=== PATIENT | female | born 1970 | race Caucasian/White ===

== ENCOUNTER → 2017-11-20 | Day surgery (SDC) | payer BC ==
[~2017-11-20] MED LIST: ALBUTEROL0.63 MG/3 INH; ASPIRIN EC81 MG PO; CALCIUM ACETAT667 MG PO; DHEA25 M1 PO; ESTER C PO; FENTANYL CITRATE/PF 100MCG/2 ML INJ ONE; KRILL OIL 1,001 EACH PO; KRILL OIL500 MG PO; MIDAZOLAM HCL 2 MG/2 ML VIAL ONE; OR PHACO EYE KIT ONE; PRENATAL PLUS1 EAC3 PO; PREOP PHACO EYE KIT ONE; SYNTHROID125 MCG PO; VIT D PO; ZYRTEC10 MG PO
[2017-11-20 15:00] VITALS: BP 119/72
== END | disposition home or self-care (01) ==
LOC: OR 11:42
PROVIDERS: ATTEND Ophthalmology
DX: H25.11 Age-related nuclear cataract, right eye (principal); E03.9 Hypothyroidism, unspecified; Z79.82 Long term (current) use of aspirin; J45.909 Unspecified asthma, uncomplicated; T78.40XA Allergy, unspecified, initial encounter; X58.XXXA Exposure to other specified factors, initial encounter
CPT/HCPCS: 66984; 81025; J2250; V2632

== ENCOUNTER → 2018-02-12 | Day surgery (SDC) | payer BC ==
[~2018-02-12] MED LIST changes: +ALLEGRA ALLERG180 MG PO; +VITAMIN B COMP1 EAC1 PO
--- OUTSIDE RECORDS SUMMARY | 2018-02-12 13:55 | XMS REPORT | Continuity of Care Document ---
Author Author Zahida jarred [facility] Address Unknown Phone Unavailable Problems Problem Status Onset Date Classification Date Reported Comments Source Acute sinusitis 01/20/2017 Diagnosis 01/20/2017 [facility] Feeling feverish 01/20/2017 Diagnosis 01/20/2017 [facility] Pain in throat 01/20/2017 Diagnosis 01/20/2017 [facility] Aphthous ulcer of mouth 12/19/2016 Diagnosis 12/19/2016 [facility] Medications Medication Details Route Status Patient Instructions Ordering Provider Order Date Source Amoxicillin 875 MG / Clavulanate 125 MG Oral Tablet [Augmentin] Augmentin 875 mg-125 mg tablet Take 1 tablet every 12 hours by oral route with meals for 10 days. Active [facility] Levothyroxine Sodium 0.137 MG Oral Tablet levothyroxine 137 mcg tablet TK 1 T PO ONCE D Active [facility] Medrol (Samy) 4 mg tablets in a dose pack Medrol (Samy) 4 mg tablets in a dose pack take as directed Active [facility] dexlansoprazole 30 MG Delayed Release Oral Capsule [Dexilant] Dexilant 30 mg capsule, delayed release TK ONE C PO QD Active [facility] Levothyroxine Sodium 0.15 MG Oral Tablet levothyroxine 150 mcg tablet TK 1 T PO D Active [facility] Lidocaine Hydrochloride 20 MG/ML Mucous Membrane Topical Solution Lidocaine Viscous 2 % mucosal solution Take 15 mL every 3 hours by oral route. Active [facility] Allergies, Adverse Reactions, Alerts Substance Category Reaction Severity Reaction type Status Date Reported Comments Source Immunizations Immunization Date Given Site Status Last Updated Comments Source influenza, injectable, quadrivalent 01/10/2017 completed [facility] Tdap 02/27/2012 completed [facility] Results Order Name Results Value Reference Range Date Interpretation Comments Source RESULT negative 01/20/2017 [facility] SWAB LOCATION Left and Right tonsillar pillars 01/20/2017 [facility] Influenza A negative 01/20/2017 [facility] Influenza B negative 01/20/2017 [facility] Influenza A negative 12/19/2016 [facility] Influenza B negative 12/19/2016 [facility] RESULT negative 12/19/2016 [facility] SWAB LOCATION Left and Right tonsillar pillars 12/19/2016 [facility] Vital Signs Vital Sign Value Date Comments Source Diastolic (mm Hg) 80 01/20/2017 [facility] Height 68 01/20/2017 [facility] Systolic (mm Hg) 118 01/20/2017 [facility] Weight 240 01/20/2017 [facility] Diastolic (mm Hg) 76 12/19/2016 [facility] Height 68 12/19/2016 [facility] Systolic (mm Hg) 120 12/19/2016 [facility] Weight 240 12/19/2016 [facility] Encounters Location Location Details Encounter Type Encounter Number Reason For Visit Attending Provider ADM Date DC Date Status Source [place] - [facility] - [id number] Menendez-C: [address] [place] [address], Ph. [id number] [facility] 12/19/2016 [facility] [place] [facility] [id number] Menendez-C: [address] [place] [address], Ph. [id number] Willis Sanford 01/20/2017 [facility] Procedures Procedure Code Date Perfomer Comments Source Tonsillectomy [facility] Appendectomy [facility]
--- OUTSIDE RECORDS SUMMARY | 2018-02-12 13:55 | XMS REPORT ---
Author Author [facility] Address Unknown Phone Unavailable Care Team Providers Care Thoracic Medicine Specialist Name Role Phone Unavailable Unavailable Problems This patient has no known problems. Allergies, Adverse Reactions, Alerts This patient has no known allergies or adverse reactions. Medications This patient has no known medications.
[2018-02-12 17:30] VITALS: BP 120/66
== END | disposition home or self-care (01) ==
LOC: OR 13:52
PROVIDERS: ATTEND Ophthalmology
DX: H25.12 Age-related nuclear cataract, left eye (principal); J45.909 Unspecified asthma, uncomplicated; E03.9 Hypothyroidism, unspecified; Z79.82 Long term (current) use of aspirin
CPT/HCPCS: 66984; 81025; J2250; V2632